=== PATIENT | female | born 1950 | race Caucasian/White ===

== ENCOUNTER 2017-03-30 17:31 | Emergency (ER) | payer MEDICARE, OTHER ==
[~2017-03-30] VITALS: Ht 170.2 cm; Wt 75.0 kg
[~2017-03-30 17:31] MED LIST: ALEN70TA2 PO; ASPI-973 PO; FLUT16SP NS; ROPI0.252 PO; VIT D PO; [UNRECOGNIZED DRUG - OTHER] PO
[2017-03-30 17:37] VITALS: BP 145/79; PULSE 69; RESP 15; O2SAT 99
[2017-03-30 18:30] LABS: BASOPHILS % (AUTO) 0.6 % (0-3); EOSINOPHILS % (AUTO) 1.9 % (0-5); MONOCYTES % (AUTO) 7.5 % (4-12); Mean Corpuscular Hemoglobin 32.1 pg (27.0-35.0); NEUTROPHILS % (AUTO) 59.6 % (40-74); Platelet Count 212 bil/L (150-400)
--- NOTE | 2017-03-30 18:38 | DRSVH ---
PROCEDURE: X-RAY CHEST ONE VIEW, PORTABLE ([id number]) INDICATIONS: CHEST PAIN TECHNIQUE: One view of the chest was acquired. COMPARISON: None. FINDINGS: Surgical changes and devices: Surgical clips noted in the right breast and axilla.. Lungs and pleura: No pleural effusions or pneumothorax. Lungs are clear. Mediastinum: Mediastinal contours appear normal. Heart size is normal. Bones and chest wall: No suspicious bony lesions. Overlying soft tissues appear unremarkable. IMPRESSION: No acute cardiopulmonary disease process. Dictated by: Renetta Parra MD, PhD on 03/30/2017 at 18:36 Approved by: Renetta Parra MD, PhD on 03/30/2017 at 18:36
--- NOTE | 2017-03-30 18:43 | ED.REPORT ---
HPI-Chest Pain 40 and Over Date of Service March 30, 2017 ED Provider: Lionel Ansari DO Pt is a 67 y/o female w/ a hx of breast CA s/p lumpectomy presenting to the ED c /o substernal squeezing CP with radiation to the jaw onset 15:00 today. The patient was singing getting ready for a voice lesson and began to experience squeezing substernal chest pain with radiation to the jaw lasting 10 minutes. The pain stopped once she sat down and rested. This happened 1 month ago almost exactly similarly but occurred when it she was driving. She states that singing is not a strenuous exercise for her. The patient works out in a gym regularly doing spinning exercises and does not experience chest pain at any time. The patient has had a PE previously which occurred while she had a port-a-cath and was undergoing breast cancer treatment. Pt has no hx of DM, HTN, hyperlipidemia , cocaine use. She was a smoker for 25 years but stopped 15 years ago. She has a hx of MT in her grandfather in his mid 60s. Nursing Notes Stated Complaint: CHEST PAIN ON AND OFF Chief Complaint: Chest Pain Nursing Notes Reviewed: Yes Allergies: Coded Allergies: penicillin G (Verified Allergy, Intermediate, Hives, 11/14/09) Scheduled ([Vit D ]) 2,000 IU PO DAILY ([Aller Demarco]) 10 MG PO DAILY Alendronate Sodium (Fosamax) 70 Mg Tablet 70 MG PO QW Aspirin (Aspirin) 81 Mg Tablet 81 MG PO DAILY Fluticasone Propionate (Fluticasone Propionate Nasal) 16 Gm [place].susp 1 SPRAY NS DAILY Ropinirole (Ropinirole) 0.25 Mg Tablet 0.25 MG PO QID General Time Seen by MD: 18:43 Chief Complaint Chest pain Hx Obtained From: Patient Arrived By: Walk-in Sudden in Onset?: Yes Onset Occurred: 1 - 4 hours ago Symptom Duration: Since onset Location: : Substernal Quality: Painful, Pressure Radiation: : Jaw Severity: Current: No pain currently Severity: Maximum: Moderate Risk Factors HEART Score HEART for MACE: Mod index of susp (1), Normal ECG (0), Age 65 or over (2), No risk factors known (0), < or = to NL troponin (0) HEART for MACE Score: 0-3 (low risk 0.9%-1.7%) Past Medical History Past Medical History 1. Resected stage I, ER positive, breast cancer. 2. Osteopenia. 3. Restless leg syndrome. Past Surgical History Lumpectomy Smoking History Former Smoker Social History Alcohol Use: "Social" Drug Use: Denies drug use Ambulatory Status Independent Review of Systems Constitutional: Denies: Chills, Fever Respiratory: Denies: Non-productive cough, Shortness of breath Cardiovascular: Reports: Chest pain GI: Denies: Abdominal pain, Nausea, Vomiting Complete sys rev & neg: except as marked. Physical Exam Initial Vital Signs Vital Signs (First) Date Time Temp Pulse Resp B/P Pulse Ox O2 Delivery O2 Flow Rate FiO2 03/30/17 17:37 36.5 69 15 145/79 99 Room Air Initial VS: Reviewed, Vital signs normal Head / Eyes: Atraumatic, Normocephalic, PERRL ENT: Mucous membranes moist, Conjunctiva normal, No scleral icterus Neck: Supple, Full range of motion Extremities: Vascular intact, Neuro intact, No swelling, No tenderness Skin: Warm, Dry, No cyanosis Neurologic: Alert, Oriented, Nonfocal Psychiatric: Mood/affect normal, Behavior normal, Normal thought content General/Constitutional: Awake, Alert, No acute distress, Well appearing, Well developed, Well hydrated, Well nourished, Cooperative, Not toxic appearing Respiratory / Chest: Atraumatic, Breath sounds NL, Breath sounds = bilat, No respiratory distress, No rales, No rhonchi, No wheezing, No retractions, No stridor, No chest tenderness, No chest wall deformity, No crepitus Cardiovascular: Heart rate NL, Regular rhythm, Heart sounds NL, No gallop, No murmurs, No rubs, Cap refill not delayed, Peripheral circulation NL, Pulses = bilaterally Abdomen: Atraumatic, Soft, Non-tender, No guarding, No rebound, No distention, No palpable mass Interpretation & Diagnostics Lab Results Interpretation Result Diagram: 03/30/17181903/30/171819 Test 03/30/17 18:20 03/30/17 21:22 White Blood Count 5.3th/mm3 (3.8-10.1) Red Blood Count 4.52mil/mm3 (3.90-5.20) Hemoglobin 14.5g/dL (12.0-15.6) Hematocrit 42.5% (35.0-46.0) Mean Corpuscular Volume 94.0fL (81-100) Mean Corpuscular Hemoglobin 32.1pg (27.0-35.0) Mean Corpuscular Hemoglobin Concent 34.1% (32.0-37.0) Red Cell Distribution Width 12.2% (12.3-15.4) Platelet Count 212bil/L (150-400) Neutrophils (%) (Auto) 59.6% (40-74) Lymphocytes (%) (Auto) 30.2% (14-46) Monocytes (%) (Auto) 7.5% (4-12) Eosinophils (%) (Auto) 1.9% (0-5) Basophils (%) (Auto) 0.6% (0-3) D-Dimer < 0.50mg/L FEU (<0.50) Sodium Level 140mEq/L (134-144) Potassium Level 3.9mEq/L (3.5-5.2) Chloride Level 100mEq/L (97-108) Carbon Dioxide Level 27mmol/L (18-29) Blood Urea Nitrogen 16mg/dL (8-27) Creatinine 0.62mg/dL (0.57-1.00) Estimat Glomerular Filtration Rate 138mL/min (>59) Glucose Level 94mg/dL (60-99) Calcium Level 10.0mg/dL (8.5-10.1) Magnesium Level 2.1mg/dL (1.6-2.6) Total Bilirubin 0.6mg/dL (0.0-1.2) Aspartate Amino Transf (AST/SGOT) 33U/L (0-50) Alanine Aminotransferase (ALT/SGPT) 22U/L (0-32) Alkaline Phosphatase 73U/L (25-165) Total Protein 7.0g/dL (6.4-8.4) Albumin 4.1g/dL (3.4-5.0) Troponin T 0.010ug/L (0.0-0.011) Pulse Oximetry Interpretation Pulse Oximetry: Pulse Ox normal, On room air ECG Interpretation ECG Interpretation: LAE Time: 18:49 Interpreted by: ED physician Normal ECG Interpretation: Normal ECG w/ rate of... (71), Normal rate, Normal sinus rhythm, No acute ischemic changes, Normal QRS, Normal axis, Normal intervals, Adequate tracing Rhythm Strip Interpretation : Time: 18:49 Rhythm Strip Interpretation: Interpreted by me, Rate (71), Normal sinus rhythm CBC Interpretation CBC normal BMP / CMP Interpretation BMP/CMP normal Cardiac / Vascular Lab Interp Troponin normal, D-Dimer normal X-Ray Chest Interpretation Chest Xray Interpretation: IMPRESSION: No acute cardiopulmonary disease process. Dictated by: Renetta Parra MD, PhD on 03/30/2017 at 18:36 Approved by: Renetta Parra MD, PhD on 03/30/2017 at 18:36 View: Portable, 1 view Interpretation / Wet Read by: Interpret - Radiologist Re-Eval/Medical Decision Med Decision/Clinical Course Heart scores calculated at 3. She received points for the pain rating to her throat as well as her age. Serial troponins were negative. She meets criteria for low risk and outpatient disposition. She concurs. I consulted with her primary care who concurs. We will have close outpatient follow-up. Wells criteria is low risk. D-dimer negative. CT angiogram not indicated. Time of Eval: 20:10 Re-Evaluation/Progress Note: Pt rechecked. Informed pt of plan for treatment. Pt understands and agrees with plan for treatment. F/U instructions and RTER warnings given. All questions addressed. Consultation : Referral / Consult Name: Lora Brandon MD Consulted With: Primary care physician Call Returned at: 20:31 Mechanical Facilities Technician: Agrees with eval, Agrees with plan Note: Will see in office for follow-up. Counseled Regarding: Diagnosis, Lab results, Need for follow-up, When/why to return to ED Discharge & Departure Primary Impression: Chest pain Chest pain type: unspecified Qualified Code: R07.9 - Chest pain, unspecified Disposition: Home Discharge Condition All VS Reviewed: Yes Condition: Stable Patient Instructions: Chest Pain (ED) Additional Instructions: The x-ray, heart blood tests and EKG was normal. Your heart score is 3 and this is commensurate with outpatient treatment. I consulted with Dr. Brandon. She concurs. She would like you to call the office tomorrow morning to set up a follow-up and determine if further provocative testing is indicated. Return to the emergency department if you have any further pain. It would be nice to have have an EKG while you are having the pain. Do not hesitate to return if any problems or any new or worsening symptoms. Referrals: Rosa M Varner (PCP) [place] Attestation Portions of this note were transcribed by Radames Easton. I, Dr. Ansari personally performed the history, physical exam and medical decision-making; I reviewed and confirmed the accuracy of the information in the transcribed note. Signed by [place] Fisher, 03/30/17 - [id number] copies to: Rosa M Varner Todd P DO March 30, 2017 18:43 RADAMES EASTON March 30, 2017 18:47
[2017-03-30 18:44] VITALS: BP 123/70; PULSE 65; RESP 17; O2SAT 100
[2017-03-30 19:03] LABS: TROPONIN T < 0.010 ug/L (0.0-0.011)
[2017-03-30 19:09] LABS: Magnesium 2.1 mg/dL (1.6-2.6)
[2017-03-30 21:05] VITALS: BP 126/72; PULSE 62; RESP 16; O2SAT 100
[2017-03-30 22:04] VITALS: BP 121/75; PULSE 60; RESP 16; O2SAT 97
== END 2017-03-30 22:33 | disposition home or self-care (01) ==
LOC: SED 17:31
DX: R07.2 Precordial pain (principal); Z79.82 Long term (current) use of aspirin; Z87.891 Personal history of nicotine dependence; Z88.1 Allergy status to other antibiotic agents